=== PATIENT | female | born 1995 | race Caucasian/White ===

== ENCOUNTER 2018-11-05 08:07 | Emergency (ER) | payer BC, MEDICAID ==
[~2018-11-05] VITALS: Ht 160 cm; Wt 61.2 kg
[2018-11-05 08:13] VITALS: BP_SYST 142
--- NOTE | 2018-11-05 08:25 | NUR ---
Patient to ER bed 8 to gown for evaluation. Side rails up. Report given to Waleska FRANKLIN.
--- NOTE | 2018-11-05 08:26 | NUR ---
patient arrived [facility] from home with c/o chest pain x yesterday afternoon. patients chest pain is palpable at mid sternum. pain radiates to the left shoulder with movement and 4th and 3rd finger numbness. patient admits to taking baby aspirn at home yesterday at 7pm without relief. pain is exasperated with coughing and movement. patient denies any recent fall or blunt injury to the chest wall. EKG preformed patient has no other information to share regarding complaint at this time.
--- NOTE | 2018-11-05 08:30 | NUR ---
ER at bedside examining patient.
[2018-11-05 09:51] LABS: HEMATOCRIT 40.6 % (36-48); HEMOGLOBIN 13.6 g/dL (12.0-16.0); MEAN CORPUSCULAR HEMOGLOBIN 30 pg (27-31); MEAN CORPUSCULAR HGB CONC 34 % (32-36); MEAN CORPUSCULAR VOLUME 90 fL (79.0-98.0); RED BLOOD CELL COUNT(AUTO) 4.51 MIL/uL (4.2-6.2); RED CELL DISTRIBUTION WIDTH 13.7 % (9.0-15.0)
[2018-11-05 09:52] LABS: LYMPHOCYTES # (AUTO) 1.8 K/uL (1.0-5.5); MONOCYTES # (AUTO) 0.5 K/uL (0.0-1.0); MONOCYTES % (AUTO) 9.9 % (1.7-9.3); NEUTROPHILS % (AUTO) 53.1 % (40.0-70.0); PLATELET COUNT (AUTO) 256 K/uL (130-430)
[2018-11-05 09:59] LABS: LYMPHOCYTES % (AUTO) 35.6 % (20.5-51.5)
[2018-11-05 10:00] LABS: BASOPHILS % (AUTO) 0.4 % (0.0-2.0); EOSINOPHILS # (AUTO) 0.1 K/uL (0.0-0.4); NEUTROPHILS # (AUTO) 2.6 K/uL (1.8-7.7)
[2018-11-05 10:04] LABS: CALCIUM 9.2 mg/dL (8.4-11.0); CREATININE 0.64 mg/dL (0.55-1.30)
[2018-11-05 10:09] LABS: ALBUMIN 3.6 g/dL (3.4-4.8); TOTAL BILIRUBIN 0.4 mg/dL (0.0-1.0)
[2018-11-05 10:12] LABS: PROTHROMBIN TIME 10.1 SECS (9.5-12.5)
--- NOTE | 2018-11-05 10:48 | NUR ---
Patient given written and verbal discharge instructions and verbalizes understanding. ER MD discussed with patient the results and treatment provided. Patient in stable condition. ID arm band removed. Rx of Ativan given. Patient educated on pain management and to follow up with PMD. Pain Scale 3/10. Opportunity for questions provided and answered. Medication side effect fact sheet provided.
[2018-11-05 10:49] VITALS: BP_SYST 142
== END 2018-11-05 10:48 | disposition home or self-care (01) ==
LOC: SED 08:07
DX: R07.89 Other chest pain (principal); Z88.0 Allergy status to penicillin; Z88.1 Allergy status to other antibiotic agents; Z88.8 Allergy status to other drugs, medicaments and biological substances; Z90.49 Acquired absence of other specified parts of digestive tract
CPT/HCPCS: 36415; 71045; 80053; 81025; 84484; 85025; 85610-TC; 85730-TC; 93005; 99284